=== PATIENT | male | born 1960 | race Caucasian/White ===

== ENCOUNTER 2018-05-06 09:47 | Day surgery (SDC) | payer OTHER, MEDICAID ==
[~2018-05-06 09:47] MED LIST: SUCCINYLCHOLINE CHLORIDE 100 MG/5 ML SYG IV
[2018-05-06] MEDS ORDERED: PROPOFOL 20 ML (10:59)
[2018-05-06] MEDS ORDERED: MIDAZOLAM 1 MG/ML 2 ML INJ (10:59)
[2018-05-06] MEDS ORDERED: DEXAMETHASONE 4 MG/ML 1 ML INJ (10:59)
[2018-05-06] MEDS ORDERED: ROCURONIUM 50 MG INJ (10:59)
[2018-05-06] MEDS ORDERED: GLYCOPYRROLATE 0.4 MG INJ (10:59)
[2018-05-06] MEDS ORDERED: CEFAZOLIN 1 GM INJ (10:59)
[2018-05-06] MEDS ORDERED: ONDANSETRON 4 MG INJ (10:59)
[2018-05-06] MEDS ORDERED: FENTAnyl 50 MCG/ML VIAL ×2 (10:59→12:03)
[2018-05-06] MEDS ORDERED: NEOSTIGMINE 3 MG/3 ML SYRINGE (10:59)
[2018-05-06] MEDS ORDERED: HYDROmorphONE 1 MG/5 ML IV SYRINGE IV ×3 (11:00)
[2018-05-06] MEDS ORDERED: ALBUTEROL 0.083% (NEB) 2.5 MG/3 ML AMP HHN (11:00)
[2018-05-06] MEDS ORDERED: hydrALAzine 20 MG INJ IV (11:00)
[2018-05-06] MEDS ORDERED: CEFAZOLIN 2 GM/50 ML (PMX) 50 ML IVPB (11:00)
[2018-05-06] MEDS ORDERED: MIDAZOLAM 1 MG/ML 2 ML INJ IV (11:00)
[2018-05-06] MEDS ORDERED: IPRATROPIUM (NEB) 0.5 MG/2.5 ML AMP HHN (11:00)
[2018-05-06] MEDS ORDERED: MEPERIDINE 25 MG INJ IV (11:00)
[2018-05-06] MEDS ORDERED: LACTATED RINGER'S 1,000 ML IV* (11:00)
[2018-05-06] MEDS ORDERED: ONDANSETRON 4 MG INJ IV (11:00)
[2018-05-06] MEDS ORDERED: OXYCODONE/ACETAMINOPHEN (5/325) TAB PO (11:00)
[2018-05-06] MEDS ORDERED: FENTAnyl 50 MCG/ML VIAL IV ×3 (11:00)
[2018-05-06] MEDS ORDERED: TRIMETHOBENZAMIDE 100 MG/ML VIAL IM (11:00)
[2018-05-06] MEDS ORDERED: LABETALOL HCL 20MG INJ IV (11:00)
[2018-05-06] MEDS ORDERED: DIPHENHYDRAMINE 50 MG INJ IV (11:00)
[2018-05-06] MEDS ORDERED: EPHEDrine SULFATE 50 MG/5 ML SYG IV (11:00)
[2018-05-06] MEDS: BUPIVACAINE 0.5% (SDV) 30 ML INJ (11:28)
[2018-05-06] MEDS ORDERED: KETOROLAC 30 MG INJ (11:31)
[2018-05-06] MEDS: LIDOCAINE 1% (MDV) 20 ML INJ (11:36)
[2018-05-06] MEDS: POLYMYXIN/BACITRACIN 1L IRRIG (11:39)
[2018-05-06] MEDS: OXYCODONE/ACETAMINOPHEN (5/325) TAB PO (14:23)
== END 2018-05-06 14:35 | disposition home or self-care (01) ==
LOC: SDS 09:47
DX: M24.542 Contracture, left hand (principal)
CPT/HCPCS: 26123; 88304